=== PATIENT | female | born 2000 | race Caucasian/White ===

== ENCOUNTER → 2020-01-06 11:12 | Outpatient (BNVA) | payer BC, SELFPAY | PROVIDERS: Family Provider Nurse Practitioner Family; PCP Nurse Practitioner Family; Visit Provider Nurse Practitioner Family | DX: K59.09 Other constipation (principal); K62.5 Hemorrhage of anus and rectum | CPT/HCPCS: 80053; 85025 ==

== ENCOUNTER 2020-01-09 08:54 | Outpatient (CLI) | payer BC, SELFPAY ==
--- NOTE | 2020-01-09 10:30 | CT_ITS ---
WS: [id number] CT ABDOMEN AND PELVIS NONCONTRAST HISTORY: rectal bleeding, abdominal pain TECHNIQUE: Imaging performed through the abdomen and pelvis. Coronal and sagittal reformats are submi tted. All CT scans at [facility] use at least one of these dose optimization techniques: automated exposure control; mA and/or kV adjustment per patient size (includes targeted exams where d ose is matched to clinical indication); or iterative reconstruction. DLP: 1078.23 mGy.cm COMPARISON: None available. Lower thorax: Lung bases are clear. No hiatal hernia. Liver: Normal, no mass or intrahepatic dilatation. Gallbladder: Unremarkable. Pancreas: Normal. Spleen: Normal. Adrenal glands: Normal. Right kidney: Normal size with no stones, masses or atrophy. Left kidney: Normal size with no stones, mass or atrophy. Abdominal aorta and IVC are unremarkable. No free fluid, intraperitoneal air or significant lymphadenopathy. GI tract: Normal appendix. Moderate fecal retention throughout the colon. There is an area of mild so ft tissue thickening at the rectosigmoid junction. No adjacent adenopathy or fluid. Abdominal wall: Intact. Pelvis: Normal. Osseous structures: Unremarkable. CT/CT abdomen pelvis wo con [id number] IMPRESSION: 1. Subtle area of mild circumferential mucosal thickening at the rectosigmoid junction. Mild area of colitis or proctitis. Less likely neoplasm due to age of the patient. Sigmoidoscopy would provide additional information. 2. Constipation. 3. Normal appendix. 4. No renal stone or obstruction.
[2020-01-09] MEDS: iohexol 300 mg/mL 50 mL Btl PO (10:33)
== END 2020-01-09 08:55 | disposition home or self-care (01) ==
LOC: RAD 08:57
PROVIDERS: PCP Nurse Practitioner Family; Visit Provider Nurse Practitioner Family
DX: K62.5 Hemorrhage of anus and rectum (principal); R10.9 Unspecified abdominal pain; K59.00 Constipation, unspecified
CPT/HCPCS: 74176

== ENCOUNTER → 2020-01-11 08:08 | Outpatient (BNVA) | payer BC, SELFPAY | PROVIDERS: PCP Nurse Practitioner Family; Visit Provider Nurse Practitioner | DX: K59.09 Other constipation (principal) | CPT/HCPCS: 82272 ==

== ENCOUNTER 2020-02-13 09:40 | Outpatient (CLI) | payer BC, SELFPAY ==
[2020-02-09 12:29] VITALS: BMI 26.4
== END 2020-02-13 09:41 | disposition home or self-care (01) ==
LOC: LAB 12-25 05:24
PROVIDERS: PCP Nurse Practitioner Family; Visit Provider Surgery
DX: K62.5 Hemorrhage of anus and rectum (principal)
CPT/HCPCS: 87635

== ENCOUNTER 2020-02-15 06:22 | Day surgery (SDC) | payer BC, SELFPAY ==
[2020-02-10 13:07] VITALS: BMI 26.4
[2020-02-15 06:36] VITALS: BMI 26.4
[2020-02-15 06:44] VITALS: BP 129/86; PULSE 71; RESP 18; TEMP 36.8
--- NOTE | 2020-02-15 06:49 | W.PM.OPSFHP ---
Same Day Surgery H&P Indication for Procedure/HPI DATE OF PROCEDURE: February 15, 2020 CHIEF COMPLAINT/INDICATIONFOR SURGICAL PROCEDURE: Blood in stool PREOP DIAGNOSIS: Bleeding per rectum PLANNED PROCEDRUE: Operation Date: 02/15/20 07:00 Proposed Procedures p EGD/Colon 56089 30944 K59.09(Not Applicable) - Abe Hurst MD s Colonoscopy(Not Applicable) - Abe Hurst MD This is a pleasant 19 years old young lady presents with history of constipation that has been getting worse and she did encounter a couple of episodes of fresh blood per rectum That she describes it as brisk and stopped on its own,associated with hard stool, during the clinical encounter I did notice multiple bruises on the by lateral lower extremities and left upper extremity the patient reports in the presence of her mom that she had 1 of her goats wrapped around her legs and caused these bruises, also patient reports history of heavy menses, she denies any nausea vomiting fevers or chills. Patient comes today escorted by her mom and undergone previous blood work that not of significance and she does report to me that she had her father with history of colon cancer at the splenic flexure that undergone surgery for. Patient denies history of mucus with the stool and she never had previous endoscopies also she did undergo a CT scan of the abdomen and pelvis that showed; 1. Subtle area of mild circumferential mucosal thickening at the rectosigmoid junction. Mild area of colitis or proctitis. Less likely neoplasm due to age of the patient. Sigmoidoscopy would provide additional information. 2. Constipation. 3. Normal appendix. 4. No renal stone or obstruction. Patient denies any nonintentional weight loss And reports no incidence of previous bruises or bleeding or nonhealing wounds when she was even younger and that was confirmed by mom. Interim history 02/15/2020 Patient comes today and she does report some blood in stool and she had some suprapubic abdominal pain but she attributed it more to her menstruation. She comes today with the plan to perform a diagnostic EGD and colonoscopy. ROS All systems have been reviewed negative except as per the above or per problem list Medications/Allergies* Home Medications Medication Instructions Recorded Confirmed Type calcium polycarbophil [Fiber-Tabs] 1,250 mg PO DAILY 02/09/20 02/10/20 History psyllium husk [Metamucil] 1 tbsp PO DAILY 02/09/20 02/10/20 History triamcinolone acetonide 1 applic TOPICAL BID PRN 02/09/20 02/10/20 History Allergies/Adverse Reactions Allergy/AdvReac Type Severity Reaction Status Date / Time Sulfa (Sulfonamide Allergy Unknown ALGY-Hives Verified 02/15/20 06:50 Antibiotics) insect venom Allergy ADR-Swelling Verified 02/15/20 06:50 of the Eye Pertinent History/Comorbid Conditions* Medical History (Updated 01/10/20 @ 18:08 by Abe Hurst MD) Chronic constipation No pertinent past medical history Surgical History (Updated 12/14/19 @ 16:08 by FABY New) No pertinent past surgical history Family History (Updated 01/09/20 @ 13:42 by Prachi Martínez LPN) Diabetes Grandmother CAD (coronary artery disease) Family/Other Cancer Hypertension Family/Other Denies family history of Anesthesia complication Bleeding disorder Social History Smoking and tobacco status: never smoked Second hand smoke exposure: No Alcohol intake: never Lives independently: No Household members: family Marital status: Single Current occupational status: student Current occupation: [employer] History of recent travel: No Current gender identity: Female Pertinent Exam Findings alert, oriented x 3, clear to auscultation bilaterally, regular rate & rhythm and procedure specific exam findings (Abdominal examination nontender nondistended soft) Recommendations Surgery/Procedure today (Diagnostic EGD and colonoscopy with possible biopsy) Coding Level of Care Code Acute Magisterial District Judge for Jenniffer Hannah
--- NOTE | 2020-02-15 06:51 | ANES.PREANE2 ---
Pre-Anesthetic Assessment Pre-Anesthetic Assessment: Height/Weight: Height 1.85 m Weight 90.718 kg Temp Pulse Resp BP 98.3 F 71 18 129/86 02/15/20 06:44 02/15/20 06:44 02/15/20 06:44 02/15/20 06:44 Preop Diagnosis: Bleeding per rectum Proposed Procedure: Operation Date: 02/15/20 07:00 Proposed Procedures p EGD/Colon 47816 57591 K59.09(Not Applicable) - Abe Hurst MD s Colonoscopy(Not Applicable) - Abe Hurst MD Familial anesthetic complications: None Was Beta Gibran taken within 24 hours: N/A Last intake: Intake Last Liquid Date 02/14/20 Last Liquid Time 22:00 Last Solid Date 02/13/20 Last Solid Time 22:00 Social: Social History: No alcohol and No tobacco Exam: Pre-Anes Outpt Exam: alert, oriented x 3, clear to auscultation bilaterally and regular rate & rhythm Airway: Cervical ROM: WNL MP: 2 Dentition: Full Anesthetic Plan: ASA status: 1 Anesthesia: MAC Risk of > 500 ml blood loss (7ml/kg in children): No PFSH Anesthesia PFSH: Medical History (Updated 01/10/20 @ 18:08 by Abe Hurst MD) Chronic constipation No pertinent past medical history Surgical History No pertinent past surgical history Family History Grandmother Diabetes Family/Other Hypertension CAD (coronary artery disease) Other Cancer Denies family history of Anesthesia complication Bleeding disorder Social History Smoking and tobacco status: never smoked Second hand smoke exposure: No Alcohol intake: never Lives independently: No Household members: family Marital status: Single Current occupational status: student Current occupation: [employer] History of recent travel: No Current gender identity: Female Female Reproductive History: Date of last menstrual period: 01/27/20 Para: 0 Data Anesthesia Cardiac Studies: No Data to Display
[2020-02-15] MEDS: sodium chloride 0.9% 1,000 ML 30 ML IV (07:05)
[2020-02-15 07:14] LABS: OR HCG Qualitative Urine Negative (Negative)
[2020-02-15 07:34] LABS: INR 0.92 (0.8-1.2)
[2020-02-15 07:48] LABS: Thyroid Stimulating Hormone 4.34 uIU/mL (0.27-4.20)
[2020-02-15 07:52] VITALS: BP 124/60; PULSE 86; RESP 16; TEMP 36.4; O2SAT 100
[2020-02-15 08:03] LABS: Erythrocyte Sedimentation Rate 19 mm/hr (0-15)
[2020-02-15 08:06] VITALS: BP 108/53; PULSE 59; RESP 16; O2SAT 100
--- NOTE | 2020-02-15 08:30 | ANE.PACU2 ---
Inpatient post-anesthesia follow up: Airway intact: Yes Vital signs: Temperature 97.6 F Pulse Rate 59 Respiratory Rate 16 Blood Pressure 108/53 Pulse Oximetry 100 Oxygen Delivery Me thod Room Air Oxygen Flow Rate Fraction of Inspir ed Oxygen Hydration adequate: Yes Nausea and vomiting: No Pain level: 1 Mental status: Baseline
[2020-02-15 08:35] LABS: C Reactive Protein 6.9 mg/L (0.0-4.9)
[2020-02-16 07:05] LABS: H. Pylori / CLO Test Negative
== END 2020-02-15 08:25 | disposition home or self-care (01) ==
PROVIDERS: Anesthesiology; PCP Nurse Practitioner Family; Visit Provider Surgery
PROC: 0DJ08ZZ Inspection of Upper Intestinal Tract, Via Natural or Artificial Opening Endoscopic (ICD-10-PCS; CPT 43235; principal; 2020-02-15 07:00)
PROC: 0DJD8ZZ Inspection of Lower Intestinal Tract, Via Natural or Artificial Opening Endoscopic (ICD-10-PCS; CPT 45378; 2020-02-15 07:00)
DX: K62.5 Hemorrhage of anus and rectum (principal); K59.09 Other constipation; Z80.0 Family history of malignant neoplasm of digestive organs; K21.9 Gastro-esophageal reflux disease without esophagitis; K29.70 Gastritis, unspecified, without bleeding
CPT/HCPCS: 12345; 43239; 45378; 84443; 84703; 85610; 85651; 86140; 87077; J2704; J7030

== ENCOUNTER 2020-05-16 08:09 | Outpatient (CLI) | payer BC, SELFPAY ==
--- NOTE | 2020-05-16 08:14 | FL_ITS ---
WS: [id number] SMALL BOWEL FOLLOW-THROUGH HISTORY: K62.5 Hemorrhage of anus and rectum COMPARISON: CT abdomen and pelvis 01/09/2020 FLUOROSCOPY TIME: 0 minutes. TECHNIQUE: Slurry Tank Tender film performed of the abdomen. Parental oral contrast is provided to evaluate the sm all bowel. Sequential imaging is performed. Mild delay in transit of the contrast to the terminal ileum by approximately 2 1/2 hours. No strictur es are identified. There is minimal dilatation of the terminal ileum. There is also some increased s oft tissue thickening around the terminal ileum. No stricture or extravasation or perforation. The ap pendix is not identified. FL/[place] [id number] IMPRESSION: Mild dilatation of the terminal ileum. Mild separation of adjacent bowel loops is just ending increased fat deposition. There is no obstruction.
[2020-05-16 12:11] LABS: INR 0.99 (0.8-1.2)
[2020-05-16 12:25] LABS: Alanine Aminotransferase 8 U/L (0-33); Alkaline Phosphatase 67 IU/L (35-105); Aspartate Amino Transferase 11 U/L (0-32); C Reactive Protein 12.9 mg/L (0.0-4.9); Globulin 2.9 g/dL (1.3-4.6); Thyroid Stimulating Hormone 1.97 uIU/mL (0.27-4.20); Total Bilirubin 0.2 mg/dL (0.15-1.2); Total Protein 6.9 g/dL (6.6-8.7)
[2020-05-16 13:12] LABS: Erythrocyte Sedimentation Rate 21 mm/hr (0-15)
== END 2020-05-16 08:10 | disposition home or self-care (01) ==
LOC: RAD 08:11
PROVIDERS: PCP Nurse Practitioner Family; Visit Provider Surgery
DX: K62.5 Hemorrhage of anus and rectum (principal); R19.7 Diarrhea, unspecified; K59.09 Other constipation
CPT/HCPCS: 36415; 74250; 80076; 84443; 85610; 85651; 86140

== ENCOUNTER → 2020-10-05 12:14 | Outpatient (BNVA) | payer OTHER, SELFPAY | PROVIDERS: PCP Nurse Practitioner Family; Visit Provider Nurse Practitioner Family | DX: M25.562 Pain in left knee (principal); W19.XXXA Unspecified fall, initial encounter; Z68.27 Body mass index [BMI] 27.0-27.9, adult | CPT/HCPCS: 73562 ==

== ENCOUNTER → 2021-04-16 15:26 | Outpatient (BNVA) | payer OTHER, SELFPAY | PROVIDERS: PCP Nurse Practitioner Family; Visit Provider Nurse Practitioner Family | DX: R53.83 Other fatigue (principal); F41.1 Generalized anxiety disorder | CPT/HCPCS: 80053; 82306; 84443; 85025 ==

== ENCOUNTER → 2021-05-22 10:15 | Outpatient (BNVA) | payer OTHER, SELFPAY | PROVIDERS: PCP Nurse Practitioner Family; Visit Provider Nurse Practitioner Family | DX: R30.0 Dysuria (principal); D64.9 Anemia, unspecified | CPT/HCPCS: 81000; 83540; 87077; 87086; 87184 ==

== ENCOUNTER → 2022-11-03 10:12 | Outpatient (BNVA) | payer MEDICAID, SELFPAY | PROVIDERS: Visit Provider Nurse Practitioner Family | DX: R59.0 Localized enlarged lymph nodes (principal); R53.83 Other fatigue; R59.9 Enlarged lymph nodes, unspecified; R09.89 Other specified symptoms and signs involving the circulatory and respiratory systems | CPT/HCPCS: 80053; 84443; 85025; 86308 ==

== ENCOUNTER → 2022-11-10 09:44 | Outpatient (BNVA) | payer OTHER, MEDICAID, SELFPAY | PROVIDERS: Visit Provider Nurse Practitioner Family | DX: D64.9 Anemia, unspecified (principal); R53.83 Other fatigue | CPT/HCPCS: 82728; 83550 ==

== ENCOUNTER → 2023-08-24 10:06 | Outpatient (BNVA) | payer OTHER, MEDICAID, SELFPAY | PROVIDERS: PCP Nurse Practitioner; Visit Provider Nurse Practitioner | DX: E61.1 Iron deficiency (principal); E55.9 Vitamin D deficiency, unspecified; Z13.6 Encounter for screening for cardiovascular disorders | CPT/HCPCS: 80053; 80061; 82306; 82607; 83540; 84443; 85025 ==

== ENCOUNTER 2023-11-23 21:48 | Emergency (ER) | payer OTHER, SELFPAY ==
[2023-11-23 21:52] VITALS: BP 132/77; PULSE 106; RESP 16; TEMP 37.4; O2SAT 98
[2023-11-23 23:30] VITALS: BP 116/56; PULSE 97; RESP 19; O2SAT 96
--- NOTE | 2023-11-23 23:34 | ED_ITS ---
HPI - Animal Bite 2 General: Chief Complaint: Animal Bite Stated Complaint: Bit By Cat\Finger Time Seen by Provider: 11/23/23 23:15 Source: patient Mode of arrival: ambulatory Limitations: no limitations History of Present Illness: Patient is a 23-year-old female presenting to the emergency department complaining of cat bite to right index finger last Thursday. Initially she states that the pain is gone away however it started to swell, was seen today by primary care where she was prescribed Augmentin. However she states that now she is starting to have body aches, fever, chills, and nausea and states that the pain to her right finger is worsening. She also notes that there has been some red streaking extending proximally. She notes some lymphadenopathy to the right cervical region and right axillary region as well. Status of the cat was that it was a barn cat, and while it was not displaying any unusual activity or behavior, is unvaccinated. Patient's tetanus is not up-to-date. No other concerning historical factors or symptoms to report at this time. complaint: animal bite Onset (ago): day(s) Animal: cat Description of animal: wild animal Mechanism: bite Location - Extremities: Right: hand Associated symptoms: Reports chills and fever(s); Deny headache(s) Review of Systems 2 General: Reports: 10 or more systems reviewed and unremarkable except in HPI and below Const: Reports: fever(s), chills and body aches; Denies: fatigue Eyes: Denies: change in vision ENMT: Denies: throat pain, ear or mastoid pain or nasal discharge Card: Denies: chest pain, palpitations, swelling of feet/ankles or lightheadedness Resp: Denies: dyspnea, productive cough or wheezing GI: Reports: nausea; Denies: abdominal pain, vomiting, diarrhea or constipation : Denies: flank pain, difficulty voiding, dysuria or urinary frequency Musc: Reports: extremity pain; Denies: neck pain, back pain or joint pain Skin/Breast: Reports: new lesions (Cat bite); Denies: rash Neuro: Denies: headache(s), numbness in extremities or weakness in extremities Nik/Lymph: Reports: enlarged lymph nodes PFSH ED 2 PFSH: Medical History Rectal Hemorrhage Chronic constipation Surgical History History of July 31, 2022 Family History Grandmother Diabetes Family/Other Hypertension CAD (coronary artery disease) Other Cancer Denies family history of Anesthesia complication Bleeding disorder Social History Smoking and tobacco/nicotine status: never used tobacco/nicotine Second hand smoke exposure: No Alcohol intake: never Substance/Drug Use: never Adopted: No Caregiver/support person: No Lives independently: No Household members: family Housing: House Marital status: Single Number of children: 0 Highest education level completed: High School Graduate service: No Current occupational status: student Current occupation: [employer] Current occupational exposures/hazards: No Do you think of yourself as: Straight/Heterosexual Current gender identity: Female Female Reproductive History: Para: 1 Physical Exam 2 Const: COMMON NORMALS: no acute distress, patient oriented x3, no limitations, healthy appearing, alert and well nourished HENMT: COMMON NORMALS: normocephalic and atraumatic HEAD & SCALP: n ormocephalic and atraumatic Eye: COMMON NORMALS: Equal, round and reactive pupils present, EOMs intact bilaterally and conjunctivae normal CONJUNCTIVA: Yes conjunctivae normal P UPIL: Yes Equal, round and reactive pupils present Neck/C-Spine: COMMON NORMALS: full ROM, no lymphadenopathy, supple and no meningeal signs Lymph: LYMPHATIC: no lymphadenopathy noted Resp: COMMON NORMALS: normal respiratory effort, No use of accessory muscles and clear to auscultation bilaterally AUSCULTATION: clear to auscultation bilaterally Cardio: COMMON NORMALS: regular rate and regular rhythm RATE: regular rate RHYTHM: regular rhythm GI: COMMON NORMALS: Normal to inspection, nondistended, normoactive bowel sounds present and non-tender Extremity: COMMON NORMALS: capillary refill normal, no joint enlargement and no clubbing, cyanosis or edema NARRATIVE EXTREMITY EXAM: Mild swelling noted to patient's right index finger. Tender to palpation and somewhat limitation of range of motion with flexion extension of the right index finger. Neuro: COMMON NORMALS: patient oriented x3, moves all extremities, no focal motor deficits and no sensory deficits noted SENSORIUM/ORIENTATION: Yes alert MENINGEAL SIGNS: Yes no meningeal signs Skin: NARRATIVE SKIN EXAM: Pinpoint lesion noted to dorsal aspect of right index finger, no active bleeding or drainage. Course 2 Vital Signs: Vital signs: Vital Signs Temperature 99.3 F 11/23/23 21:52 Pulse Rate 101 H 11/24/23 01:30 Respiratory Rate 18 11/24/23 01:30 Blood Pressure 101/48 11/24/23 01:30 Pulse Oximetry 92 11/24/23 01:30 Oxygen Delivery Me thod Room Air 11/24/23 01:30 MDM - Animal Bite Medical Decision Making Patient arrives after receiving cat bite from unvaccinated, wild kitten last Thursday. She was started on Augmentin today, however was concerned when she started develop nausea vomiting with fevers at home. She is afebrile on arrival to the emergency department, and rest of her vitals have been normal. Physical examination overall normal aside from noting the pinpoint Bite lesion to her right index finger. There was no significant red streaking noted at this time, there was some swelling noted to her finger. Her lab work was all unremarkable and did not demonstrate any signs of systemic infection. She is started on IV antibiotics and instructed to continue her Augmentin at home. After further discussion, we agreed to start rabies prophylactic vaccination series today, of which she will receive immunoglobulin and vaccine here and return for further vaccinations. Strict return precautions were given. She states that she feels better at this time and is ready to go home. Lab Data 11/23/23 23:51 11/23/23 23:51 Laboratory Results WBC 10.25 10^3/uL (3.29-11.43) 11/23/23 23:51 RBC 5.33 10^6/uL (3.85-5.65) 11/23/23 23:51 Hgb 13.10 g/dL (11.27-16.99) 11/23/23 23:51 Hct 40.9 % (36-47) 11/23/23 23:51 MCV 76.7 fl (85-98) L 11/23/23 23:51 MCH 24.6 pg (27-33) L 11/23/23 23: MCHC 32.0 g/dL (30-55) 11/23/23 23:51 RDW 15.0 % (12.1-15.1) 11/23/23 23:51 Plt Count 191 10^3/cmm (157-399) 11/23/23 23:51 MPV 9.8 fL (7.4-10.4) 11/23/23 23:51 Neut % (Auto) 82.5 % 11/23/23 23:51 Lymph % (Auto) 10.3 % 11/23/23 23:51 Tompkins % (Auto) 6.0 % 11/23/23 23:51 Eos % (Auto) 0.5 % 11/23/23 23:51 Baso % (Auto) 0.4 % 11/23/23 23:51 Neut # (Auto) 8.45 10^3/uL (1.8-7.7) H 11/23/23 23:51 Lymph # (Auto) 1.1 10^3/uL (0.8-4.8) 11/23/23 23:51 Tompkins # (Auto) 0.6 10^3/uL (0.2-0.9) 11/23/23 23:51 Eos # (Auto) 0.1 10^3/uL (0.0-0.8) 11/23/23 23:51 Baso # (Auto) 0.0 10^3/uL (0.0-0.1) 11/23/23 23:51 Nucleated RBC % (auto) 0 % 11/23/23 23:51 Nucleated RBCs # 0.0 /100WBC 11/23/23 23:51 Sodium 138 mmol/L (136-145) 11/23/23 23:51 Potassium 4.1 mmol/L (3.5-5.1) 11/23/23 23:51 Chloride 102 mmol/L (98-107) 11/23/23 23:51 Carbon Dioxide 23 mmol/L (22-29) 11/23/23 23:51 Anion Gap 17.1 (5-19) 11/23/23 23:51 BUN 15 mg/dL (6-20) 11/23/23 23:51 Creatinine 0.8 mg/dL (0.5-0.9) 11/23/23 23:51 GFR Calculation 88.9 mL/min (90-130) L 11/23/23 23:51 Glucose 104 mg/dL (65-115) 11/23/23 23:51 Calculated Osmolality 287 mOsm/kg (285-295) 11/23/23 23:51 Lactic Acid 0.8 mmol/L (0.5-2.2) 11/23/23 23:51 Calcium 9.7 mg/dL (8.5-10.5) 11/23/23 23:51 Total Bilirubin 0.4 mg/dL (0.15-1.2) 11/23/23 23:51 AST 12 U/L (0-32) 11/23/23 23:51 ALT 11 U/L (0-33) 11/23/23 23:51 Alkaline Phosphatase 90 U/L (35-105) 11/23/23 23:51 C-Reactive Protein 27.1 mg/L (0.0-4.9) H 11/23/23 23:51 Total Protein 7.2 g/dL (6.6-8.7) 11/23/23 23:51 Albumin 4.5 g/dL (3.5-5.2) 11/23/23 23:51 Globulin 2.7 g/dL (1.3-4.6) 11/23/23 23:51 Procalcitonin 0.05 ng/mL (0-0.5) 11/23/23 23:51 No radiology studies performed this visit Discharge Plan Discharge Patient Disposition: Home Clinical Impression: Cat bite Qualifiers: Encounter type: initial encounter Qualified Code(s): W55.01XA - Bitten by cat, initial encounter Condition: Stable Prescriptions: No Action amoxicillin-pot clavulanate 875-125 mg tablet 1 tab PO BID 10 Days Qty: 20 0RF sertraline 100 mg tablet 100 mg PO DAILY Qty: 30 5RF Discharge Orders: Discharge ED (Routine); Ordered 11/24/23 Ordered By: Miguel Clemente Referrals: Hung Baker, RESERVOIR ENGINEERING ADVISOR-C [Primary Care Provider] - Discharge Diet: Usual diet Discharge Activity: Increase activity as tolerated Patient Instructions: Animal Bite (ED), Rabies (ED) Activity Restrictions/Additional Instructions: Please return for subsequent rabies vaccination as instructed. Continue taking your Augmentin at home. Tylenol or ibuprofen for pain or fevers. If you have any new or concerning symptoms or signs of systemic illness, please return for reevaluation. Your tetanus was updated today 11/24/2023. Coding Level of Care Code ED Barrel Plater for Jenniffer Hannah
[2023-11-23 23:57] LABS: Basophils % 0.4 %; Eosinophils # 0.1 10^3/uL (0.0-0.8); Eosinophils % 0.5 %; Hematocrit 40.9 % (36-47); Lymphocytes # 1.1 10^3/uL (0.8-4.8); Lymphocytes % 10.3 %; Mean Corpuscular Hemoglobin 24.6 pg (27-33); Mean Corpuscular Volume 76.7 fl (85-98); Mean Platelet Volume 9.8 fL (7.4-10.4); Monocytes # 0.6 10^3/uL (0.2-0.9); Neutrophils # 8.45 10^3/uL (1.8-7.7); Neutrophils % 82.5 %; Nucleated Red Blood Cells % 0 %; Platelet Count 191 10^3/cmm (157-399); Red Blood Count 5.33 10^6/uL (3.85-5.65); White Blood Count 10.25 10^3/uL (3.29-11.43)
[2023-11-24] MEDS: sodium chloride 0.9% 1,000 ML 999 ML IV (00:10)
[2023-11-24] MEDS: ondansetron 2 mg/ML SDV 2 mL 4 MG IVP (00:11)
[2023-11-24] MEDS: ampicillin-sulbactam 3 GM in sodium chloride 0.9% (plus) 50 ML IV (00:13)
[2023-11-24 00:16] LABS: Alanine Aminotransferase 11 U/L (0-33); Albumin Level 4.5 g/dL (3.5-5.2); Alkaline Phosphatase 90 U/L (35-105); Anion Gap 17.1 (5-19); Aspartate Amino Transferase 12 U/L (0-32); Blood Urea Nitrogen 15 mg/dL (6-20); C Reactive Protein 27.1 mg/L (0.0-4.9); Calcium 9.7 mg/dL (8.5-10.5); Carbon Dioxide 23 mmol/L (22-29); Chloride 102 mmol/L (98-107); Creatinine Clr Calc Pharmacy 152.6661; Globulin 2.7 g/dL (1.3-4.6); Glomerular Filtration Rate 88.9 mL/min (90-130); Glucose 104 mg/dL (65-115); Osmolality Calculated 287 mOsm/kg (285-295); Potassium 4.1 mmol/L (3.5-5.1); Sodium 138 mmol/L (136-145); Total Bilirubin 0.4 mg/dL (0.15-1.2); Total Protein 7.2 g/dL (6.6-8.7)
[2023-11-24 00:17] LABS: Lactic Sepsis W/Reflex 0.8 mmol/L (0.5-2.2)
[2023-11-24 00:23] LABS: Procalcitonin 0.05 ng/mL (0-0.5)
[2023-11-24] MEDS: tetanus-dipt-pertussis 0.5 mL SDV IM (00:25)
[2023-11-24 00:30] VITALS: BP 112/47; PULSE 100; RESP 18; O2SAT 96
[2023-11-24] MEDS: ketorolac 60 mg/2 mL INJ 30 MG IVP (00:37)
[2023-11-24 01:30] VITALS: BP 101/48; PULSE 101; RESP 18; O2SAT 92
[2023-11-24] MEDS: rabies vaccine 2.5 unit SDV IM (01:40)
[2023-11-24] MEDS: rabies IG 300 unit/mL SDV 1 mL 2160 UNIT IM (01:42)
== END 2023-11-24 02:16 | disposition home or self-care (01) ==
PROVIDERS: Emergency Medicine; Emergency Provider Physician Assistant; PCP Nurse Practitioner
DX: S61.250A Open bite of right index finger without damage to nail, initial encounter (principal); W55.01XA Bitten by cat, initial encounter; Z23 Encounter for immunization; Z20.3 Contact with and (suspected) exposure to rabies; Z29.14 Encounter for prophylactic rabies immune globulin
CPT/HCPCS: 80053; 83605; 84145; 85025; 86140; 90375; 90471; 90675; 90715; 96365; 96372; 96375; 99284; J0295; J1885; J2405; J7030

== ENCOUNTER 2023-11-25 22:42 | Emergency (ER) | payer OTHER, SELFPAY ==
[2023-11-25 22:48] VITALS: BP 153/89; PULSE 96; RESP 14; TEMP 37.3; O2SAT 100; BMI 32.3
--- NOTE | 2023-11-25 22:49 | ED_ITS ---
Documented by User: FABY Baldwin 11/28/23 13:18 HPI - Animal Bite 2 General: Chief Complaint: Headache Stated Complaint: headache cant shake fever n/v pain under arm Time Seen by Provider: 11/25/23 22:45 History of Present Illness: 23-year-old female comes in today for co mplaints of headache, fever, and pain under the right axilla. Patient was bit by a barn cat last Thursday but waited to be seen until this Thursday when she was started on Augmentin. Patient was also updated of her tetanus and started on the rabies vaccine series. Patient reports that she has had a persistent headache since then. Patient appears nontoxic. Patient has some redness and mild swelling to the PIP joint of the right index finger where the cat bit her. Review of Systems 2 General: Reports: 10 or more systems reviewed and unremarkable except in HPI and below Musc: Reports: extremity pain (Right index finger) PFSH ED 2 PFSH: Medical History Rectal Hemorrhage Chronic constipation Surgical History History of July 31, 2022 Family History Grandmother Diabetes Family/Other Hypertension CAD (coronary artery disease) Other Cancer Denies family history of Anesthesia complication Bleeding disorder Social History Smoking and tobacco/nicotine status: never used tobacco/nicotine Second hand smoke exposure: No Alcohol intake: never Substance/Drug Use: never Adopted: No Caregiver/support person: No Lives independently: No Household members: family Housing: House Marital status: Single Number of children: 0 Highest education level completed: High School Graduate service: No Current occupational status: student Current occupation: [email or web address] Current occupational exposures/hazards: No Do you think of yourself as: Straight/Heterosexual Current gender identity: Female Female Reproductive History: Para: 1 Physical Exam 2 Const: COMMON NORMALS: alert HENMT: COMMON NORMALS: normocephalic HEAD & SCALP: normocephalic Neck/C-Spine: COMMON NORMALS: full ROM Chest: COMMONS NORMALS: normal inspection of the chest Resp: COMMON NORMALS: normal respiratory effort and clear to auscultation bilaterally AUSCULTATION: clear to auscultation bilaterally Cardio: COMMON NORMALS: regular rate RATE: regular rate GI: COMMON NORMALS: Soft to palpation PALPATION: Yes Soft to palpation Back/Pelvis: COMMON NORMALS: thoracic and lumbar spine normal to inspection Extremity: COMMON NORMALS: normal to inspection Neuro: SENSORIUM/ORIENTATION: Yes alert Skin: COMMON NORMALS: turgor normal GENERAL SKIN EXAM: turgor normal Course 2 Vital Signs: Vital signs: Vital Signs Temperature 99.4 F 11/26/23 04:11 Pulse Rate 89 11/26/23 04:11 Respiratory Rate 14 11/26/23 04:11 Blood Pressure 115/75 11/26/23 04:11 Pulse Oximetry 99 11/26/23 04:11 Oxygen Delivery Me thod Room Air 11/26/23 04:11 MDM - Animal Bite Medical Decision Making 23-year-old female comes in today for complaints of injury to the right index finger. On exam patient has some mild swelling to the PIP joint area of the right index finger. Cap refill is intact distally. Sensation is intact distally. Patient has decreased range of motion of the finger due to some mild swelling. No lymphangitis is noted. Patient does report palpable lymph nodes to the right axilla. Vital signs are normal with mild temperature of 99.2. Differential diagnosis includes not limited to tenosynovitis, malingering, sepsis, wound infection. 0015, reviewed patient with Dr. Avery, attending ER physician. He agreed to assume care of my patient at the end of my shift. Laboratory values were unremarkable except for CRP being 218. We are awaiting CT report. Patient did report some improvement of headache. We will plan for discharge if CT is unremarkable. Otherwise, patient may need referral to orthopedic for incision and drainage. Lab Data 11/25/23 22:55 11/25/23 22:[address] 11/25/23 22:52 IMPRESSION: 1. There is a fluid collection dorsal to the 2nd PIP joint that appears to communicate with the joint space concerning for abscess measuring 1.4 x 1.0 x 0.7 cm. 2. There is concern over the integrity of the 2nd extensor tendon immediately dorsal to the 2nd PIP joint where there is a 2 mm gap in the lateral aspect of the tendon or lateral bundle fiber disruption immediately dorsal to the distal 2nd proximal phalanx. This is best seen on series 3, image 55. 3. There is a 2nd PIP joint effusion resulting in marked volar displacement of the 2nd flexor tendon immediately anterior to the 2nd PIP joint. This suggest effusion/septic joint. 4. No acute bony fracture or dislocation. No bony puncture is identified. No periosteal reaction or osteomyelitis. Laboratory Results WBC 6.35 10^3/uL (3.29-11.43) 11/25/23 22:55 RBC 5.42 10^6/uL (3.85-5.65) 11/25/23 22:55 Hgb 13.40 g/dL (11.27-16.99) 11/25/23 22:55 Hct 41.6 % (36-47) 11/25/23 22:55 MCV 76.8 fl (85-98) L 11/25/23 22:55 MCH 24.7 pg (27-33) L 11/25/23 22:55 MCHC 32.2 g/dL (30-55) 11/25/23 22:55 RDW 15.5 % (12.1-15.1) H 11/25/23 22:55 Plt Count 161 10^3/cmm (157-399) 11/25/23 22:55 MPV 10.0 fL (7.4-10.4) 11/25/23 22:55 Neut % (Auto) 71.7 % 11/25/23 22:55 Lymph % (Auto) 23.1 % 11/25/23 22:55 [place] % (Auto) 4.1 % 11/25/23 22:55 Eos % (Auto) 0.3 % 11/25/23 22:55 Baso % (Auto) 0.5 % 11/25/23 22:55 Neut # (Auto) 4.55 10^3/uL (1.8-7.7) 11/25/23 22:55 Lymph # (Auto) 1.5 10^3/uL (0.8-4.8) 11/25/23 22:55 [place] # (Auto) 0.3 10^3/uL (0.2-0.9) 11/25/23 22:55 Eos # (Auto) 0.0 10^3/uL (0.0-0.8) 11/25/23 22:55 Baso # (Auto) 0.0 10^3/uL (0.0-0.1) 11/25/23 22:55 Nucleated RBC % (auto) 0 % 11/25/23 22:55 Nucleated RBCs # 0.0 /100WBC 11/25/23 22:55 ESR 12 mm/hr (0-15) 11/25/23 22:55 Sodium 137 mmol/L (136-145) 11/25/23 22:55 Potassium 3.8 mmol/L (3.5-5.1) 11/25/23 22:55 Chloride 101 mmol/L (98-107) 11/25/23 22:55 Carbon Dioxide 22 mmol/L (22-29) 11/25/23 22:55 Anion Gap 17.8 (5-19) 11/25/23 22:55 BUN 7 mg/dL (6-20) 11/25/23 22:55 Creatinine 0.7 mg/dL (0.5-0.9) 11/25/23 22:55 GFR Calculation 103.7 mL/min (90-130) 11/25/23 22:55 Glucose 95 mg/dL (65-115) 11/25/23 22:55 Calculated Osmolality 282 mOsm/kg (285-295) L 11/25/23 22:55 Lactic Acid 0.6 mmol/L (0.5-2.2) 11/25/23 22:55 Calcium 9.1 mg/dL (8.5-10.5) 11/25/23 22:55 Total Bilirubin 0.4 mg/dL (0.15-1.2) 11/25/23 22:55 AST 16 U/L (0-32) 11/25/23 22:55 ALT 15 U/L (0-33) 11/25/23 22:55 Alkaline Phosphatase 99 U/L (35-105) 11/25/23 22:55 C-Reactive Protein 218.4 mg/L (0.0-4.9) H 11/25/23 22:55 Total Protein 7.6 g/dL (6.6-8.7) 11/25/23 22:55 Albumin 4.3 g/dL (3.5-5.2) 11/25/23 22:55 Globulin 3.3 g/dL (1.3-4.6) 11/25/23 22:55 HCG, Qual Negative (Negative) 11/25/23 22:55 Discharge Plan Discharge Patient Disposition: Xfer Short-Term Hosp Clinical Impression: Septic joint Qualifiers: Septic arthritis location: hand Septic arthritis organism: due to unspecified organism Laterality: right Qualified Code(s): M00.9 - Pyogenic arthritis, unspecified Condition: Stable Referrals: Hung Baker, THRASHER FEEDER-C [Primary Care Provider] - Coding Level of Care Code ED Women'S Soccer Coach for Chg Fwd Documented by User: Oscar Avery DO 11/26/23 03:15 HPI - Animal Bite 2 General: Chief Complaint: Headache Stated Complaint: headache cant shake fever n/v pain under arm Time Seen by Provider: 11/25/23 22:45 PFSH ED 2 PFSH: Medical History Rectal Hemorrhage Chronic constipation Surgical History History of July 31, 2022 Family History Grandmother Diabetes Family/Other Hypertension CAD (coronary artery disease) Other Cancer Denies family history of Anesthesia complication Bleeding disorder Social History Smoking and tobacco/nicotine status: never used tobacco/nicotine Second hand smoke exposure: No Alcohol intake: never Substance/Drug Use: never Adopted: No Caregiver/support person: No Lives independently: No Household members: family Housing: House Marital status: Single Number of children: 0 Highest education level completed: High School Graduate service: No Current occupational status: student Current occupation: [email or web address] Current occupational exposures/hazards: No Do you think of yourself as: Straight/Heterosexual Current gender identity: Female Course 2 Vital Signs: Vital signs: Vital Signs Temperature 99.4 F 11/26/23 04:11 Pulse Rate 89 11/26/23 04:11 Respiratory Rate 14 11/26/23 04:11 Blood Pressure 115/75 11/26/23 04:11 Pulse Oximetry 99 11/26/23 04:11 Oxygen Delivery Me thod Room Air 11/26/23 04:11 MDM - Animal Bite Medical Decision Making 23-year-old female comes in today for complaints of injury to the right index finger. On exam patient has some mild swelling to the PIP joint area of the right index finger. Cap refill is intact distally. Sensation is intact distally. Patient has decreased range of motion of the finger due to some mild swelling. No lymphangitis is noted. Patient does report palpable lymph nodes to the right axilla. Vital signs are normal with mild temperature of 99.2. Differential diagnosis includes not limited to tenosynovitis, malingering, sepsis, wound infection. 0015, reviewed patient with Dr. Avery, attending ER physician. He agreed to assume care of my patient at the end of my shift. Laboratory values were unremarkable except for CRP being 218. We are awaiting CT report. Patient did report some improvement of headache. We will plan for discharge if CT is unremarkable. Otherwise, patient may need referral to orthopedic for incision and drainage. CT scan results showed probable septic joint with abscess and possible tendon disruption, hand surgeon at [facility] was consulted he reviewed the images and discussed this patient with myself. If there is a bed available at [facility] he will accept the patient in transfer take her to the operating room. He suggested no antibiotics at this time and keep the patient NPO. Dr. Bryant hospitalist called back and accepted the patient. Lab Data 11/25/23 22:55 11/25/23 22:[address] 11/25/23 22:52 IMPRESSION: 1. There is a fluid collection dorsal to the 2nd PIP joint that appears to communicate with the joint space concerning for abscess measuring 1.4 x 1.0 x 0.7 cm. 2. There is concern over the integrity of the 2nd extensor tendon immediately dorsal to the 2nd PIP joint where there is a 2 mm gap in the lateral aspect of the tendon or lateral bundle fiber disruption immediately dorsal to the distal 2nd proximal phalanx. This is best seen on series 3, image 55. 3. There is a 2nd PIP joint effusion resulting in marked volar displacement of the 2nd flexor tendon immediately anterior to the 2nd PIP joint. This suggest effusion/septic joint. 4. No acute bony fracture or dislocation. No bony puncture is identified. No periosteal reaction or osteomyelitis. Laboratory Results WBC 6.35 10^3/uL (3.29-11.43) 11/25/23 22:55 RBC 5.42 10^6/uL (3.85-5.65) 11/25/23 22:55 Hgb 13.40 g/dL (11.27-16.99) 11/25/23 22:55 Hct 41.6 % (36-47) 11/25/23 22:55 MCV 76.8 fl (85-98) L 11/25/23 22:55 MCH 24.7 pg (27-33) L 11/25/23 22:55 MCHC 32.2 g/dL (30-55) 11/25/23 22:55 RDW 15.5 % (12.1-15.1) H 11/25/23 22:55 Plt Count 161 10^3/cmm (157-399) 11/25/23 22:55 MPV 10.0 fL (7.4-10.4) 11/25/23 22:55 Neut % (Auto) 71.7 % 11/25/23 22:55 Lymph % (Auto) 23.1 % 11/25/23 22:55 [place] % (Auto) 4.1 % 11/25/23 22:55 Eos % (Auto) 0.3 % 11/25/23 22:55 Baso % (Auto) 0.5 % 11/25/23 22:55 Neut # (Auto) 4.55 10^3/uL (1.8-7.7) 11/25/23 22:55 Lymph # (Auto) 1.5 10^3/uL (0.8-4.8) 11/25/23 22:55 [place] # (Auto) 0.3 10^3/uL (0.2-0.9) 11/25/23 22:55 Eos # (Auto) 0.0 10^3/uL (0.0-0.8) 11/25/23 22:55 Baso # (Auto) 0.0 10^3/uL (0.0-0.1) 11/25/23 22:55 Nucleated RBC % (auto) 0 % 11/25/23 22:55 Nucleated RBCs # 0.0 /100WBC 11/25/23 22:55 ESR 12 mm/hr (0-15) 11/25/23 22:55 Sodium 137 mmol/L (136-145) 11/25/23 22:55 Potassium 3.8 mmol/L (3.5-5.1) 11/25/23 22:55 Chloride 101 mmol/L (98-107) 11/25/23 22:55 Carbon Dioxide 22 mmol/L (22-29) 11/25/23 22:55 Anion Gap 17.8 (5-19) 11/25/23 22:55 BUN 7 mg/dL (6-20) 11/25/23 22:55 Creatinine 0.7 mg/dL (0.5-0.9) 11/25/23 22:55 GFR Calculation 103.7 mL/min (90-130) 11/25/23 22:55 Glucose 95 mg/dL (65-115) 11/25/23 22:55 Calculated Osmolality 282 mOsm/kg (285-295) L 11/25/23 22:55 Lactic Acid 0.6 mmol/L (0.5-2.2) 11/25/23 22:55 Calcium 9.1 mg/dL (8.5-10.5) 11/25/23 22:55 Total Bilirubin 0.4 mg/dL (0.15-1.2) 11/25/23 22:55 AST 16 U/L (0-32) 11/25/23 22:55 ALT 15 U/L (0-33) 11/25/23 22:55 Alkaline Phosphatase 99 U/L (35-105) 11/25/23 22:55 C-Reactive Protein 218.4 mg/L (0.0-4.9) H 11/25/23 22:55 Total Protein 7.6 g/dL (6.6-8.7) 11/25/23 22:55 Albumin 4.3 g/dL (3.5-5.2) 11/25/23 22:55 Globulin 3.3 g/dL (1.3-4.6) 11/25/23 22:55 HCG, Qual Negative (Negative) 11/25/23 22:55 All radiology interpretation(s) finalized by discharge Discharge Plan Discharge Patient Disposition: Xfer Short-Term Hosp Clinical Impression: Septic joint Qualifiers: Septic arthritis location: hand Septic arthritis organism: due to unspecified organism Laterality: right Qualified Code(s): M00.9 - Pyogenic arthritis, unspecified Condition: Stable Referrals: Hung Baker, THRASHER FEEDER-C [Primary Care Provider] - Coding Level of Care Code ED Women'S Soccer Coach for Jenniffer Hannah
--- NOTE | 2023-11-25 22:52 | CTR_ITS ---
PROCEDURE INFORMATION: Exam: CT Right Upper Extremity With Contrast, Hand Exam date and time: 11/25/2023 11:06 PM Age: 23 years old Clinical indication: Injury or trauma; Other: Bit by cat; Swelling (edema); Hand; Right; Additional info: Animal bite index finger TECHNIQUE: Imaging protocol: Computed tomography of the right upper extremity with contrast. Exam focused on the hand. Radiation optimization: All CT scans at this facility use at least one of these dose optimization techniques: automated exposure control; mA and/or kV adjustment per patient size (includes targeted exams where dose is matched to clinical indication); or iterative reconstruction. Contrast material: OMNI 350; Contrast volume: 100 ml; Contrast route: INTRAVENOUS (IV); COMPARISON: No relevant prior studies available. RADIATION DOSE METRICS: Total DLP (mGy-cm): 323 FINDINGS: Bones/joints: There is a fluid collection dorsal to the 2nd PIP joint that appears to communicate with the joint space concerning for abscess measuring 1.4 x 1.0 x 0.7 cm. The communication of the fluid collection with the joint is best appreciated by a small fluid-filled track dissecting from the dorsal fluid collection directly into the posterior 2nd PIP joint on series 8, image 19. There is concern over the integrity of the 2nd extensor tendon immediately dorsal to the 2nd PIP joint where there is a 2 mm gap in the lateral aspect of the tendon or lateral bundle fiber disruption immediately dorsal to the distal 2nd proximal phalanx. This is best seen on series 3, image 55. There is a 2nd PIP joint effusion resulting in marked volar displacement of the 2nd flexor tendon immediately anterior to the 2nd PIP joint. No acute bony fracture or dislocation. No bony puncture is identified. Soft tissues: There is abundant soft tissue edema 2nd finger especially immediately dorsal to the PIP joint. The remainder of the visualized hand and wrist are intact. Other findings: No foreign body. CT/CT hand RT w con [id number] IMPRESSION: 1. There is a fluid collection dorsal to the 2nd PIP joint that appears to communicate with the joint space concerning for abscess measuring 1.4 x 1.0 x 0.7 cm. 2. There is concern over the integrity of the 2nd extensor tendon immediately dorsal to the 2nd PIP joint where there is a 2 mm gap in the lateral aspect of the tendon or lateral bundle fiber disruption immediately dorsal to the distal 2nd proximal phalanx. This is best seen on series 3, image 55. 3. There is a 2nd PIP joint effusion resulting in marked volar displacement of the 2nd flexor tendon immediately anterior to the 2nd PIP joint. This suggest effusion/septic joint. 4. No acute bony fracture or dislocation. No bony puncture is identified. No periosteal reaction or osteomyelitis.
[2023-11-25] MEDS: sodium chloride 0.9% 1,000 ML 999 ML IV (22:59)
[2023-11-25] MEDS: ketorolac 30 mg/mL INJ 15 MG IVP (23:00)
[2023-11-25] MEDS: diphenhydrAMINE 50 mg/mL SDV 1mL 25 MG IVP (23:01)
[2023-11-25] MEDS: metoclopramide 5 mg/mL SDV 2 mL 10 MG IVP (23:01)
[2023-11-25 23:09] LABS: Erythrocyte Sedimentation Rate 12 mm/hr (0-15)
[2023-11-25] MEDS: iohexol 350 mg/mL 500 mL Btl (per mL) IV (23:10)
[2023-11-25 23:11] LABS: Basophils % 0.5 %; Eosinophils % 0.3 %; Hematocrit 41.6 % (36-47); Lymphocytes # 1.5 10^3/uL (0.8-4.8); Lymphocytes % 23.1 %; Mean Corpuscular HGB Conc 32.2 g/dL (30-55); Mean Corpuscular Hemoglobin 24.7 pg (27-33); Mean Corpuscular Volume 76.8 fl (85-98); Monocytes # 0.3 10^3/uL (0.2-0.9); Monocytes % 4.1 %; Neutrophils # 4.55 10^3/uL (1.8-7.7); Neutrophils % 71.7 %; Nucleated Red Blood Cells % 0 %; Platelet Count 161 10^3/cmm (157-399); Red Blood Count 5.42 10^6/uL (3.85-5.65); Red Cell Distribution Width 15.5 % (12.1-15.1); White Blood Count 6.35 10^3/uL (3.29-11.43)
[2023-11-25 23:23] LABS: Alanine Aminotransferase 15 U/L (0-33); Albumin Level 4.3 g/dL (3.5-5.2); Alkaline Phosphatase 99 U/L (35-105); Anion Gap 17.8 (5-19); Aspartate Amino Transferase 16 U/L (0-32); Blood Urea Nitrogen 7 mg/dL (6-20); C Reactive Protein 218.4 mg/L (0.0-4.9); Calcium 9.1 mg/dL (8.5-10.5); Carbon Dioxide 22 mmol/L (22-29); Chloride 101 mmol/L (98-107); Creatinine Clr Calc Pharmacy 176.9815; Globulin 3.3 g/dL (1.3-4.6); Glomerular Filtration Rate 103.7 mL/min (90-130); Glucose 95 mg/dL (65-115); Osmolality Calculated 282 mOsm/kg (285-295); Potassium 3.8 mmol/L (3.5-5.1); Sodium 137 mmol/L (136-145); Total Bilirubin 0.4 mg/dL (0.15-1.2); Total Protein 7.6 g/dL (6.6-8.7)
[2023-11-25 23:24] LABS: Lactic Sepsis W/Reflex 0.6 mmol/L (0.5-2.2)
[2023-11-25 23:32] LABS: HCG, Serum Qual Negative (Negative)
[2023-11-26 00:33] VITALS: BP 110/68; PULSE 102; RESP 16; O2SAT 99
[2023-11-26] MEDS: HYDROcodone-acetaminophen 5-325 mg Tablet 1 TAB PO (01:00)
[2023-11-26 02:44] VITALS: BP 112/78; PULSE 83; RESP 16; O2SAT 96
--- NOTE | 2023-11-26 02:50 | DCPLANNER ---
At 0236, contacted Fareed at [facility] regarding patient transfer. He requested that we fly the patient instead of sending her by ground. Called [facility] at 0239 and spoke to Mark. [facility] was able to accept the flight with a 13 minute ETA.
[2023-11-26 03:17] VITALS: BP 112/78; PULSE 82; O2SAT 97
[2023-11-26 04:11] VITALS: BP 115/75; PULSE 89; RESP 14; TEMP 37.4; O2SAT 99
--- NOTE | 2023-11-26 04:20 | PC.NURSE ---
pt returned to er by [facility] due to fog. [facility] contacted and arrived at 0420 to transport pt
== END 2023-11-26 04:24 | disposition short-term general hospital (02) ==
PROVIDERS: Emergency Provider Nurse Practitioner Family; PCP Nurse Practitioner
DX: M00.9 Pyogenic arthritis, unspecified (principal)
CPT/HCPCS: 36415; 73201; 80053; 83605; 84703; 85025; 85651; 86140; 87040; 96374; 96375; 99285; J1200; J1885; J2765; J7030; Q9967

== ENCOUNTER 2023-12-08 15:00 | Oncology outpatient (recurring) (ONCR) | payer OTHER, SELFPAY ==
[2023-12-01 14:49] VITALS: BP 115/79; PULSE 57; RESP 16; TEMP 36.4; O2SAT 98
[2023-12-01] MEDS: rabies vaccine 2.5 unit SDV IM (15:08)
[2023-12-08 15:10] VITALS: BP 113/75; PULSE 77; RESP 16; TEMP 36.6; O2SAT 98
[2023-12-08] MEDS: rabies vaccine 2.5 unit SDV IM (15:18)
== END 2023-12-23 23:59 | disposition home or self-care (01) ==
PROVIDERS: PCP Nurse Practitioner; Visit Provider Chiropractor
DX: Z20.3 Contact with and (suspected) exposure to rabies (principal); Z23 Encounter for immunization; S61.250A Open bite of right index finger without damage to nail, initial encounter; W55.01XA Bitten by cat, initial encounter; Z53.9 Procedure and treatment not carried out, unspecified reason
CPT/HCPCS: 90471; 90675

== ENCOUNTER → 2024-03-31 13:58 | Outpatient (BNVA) | payer OTHER, SELFPAY | PROVIDERS: PCP Family Medicine; Visit Provider Family Medicine | DX: A74.9 Chlamydial infection, unspecified (principal) | CPT/HCPCS: 87491; 87591 ==

== ENCOUNTER → 2024-05-02 16:01 | Outpatient (BNVA) | payer OTHER, SELFPAY | PROVIDERS: PCP Family Medicine; Visit Provider Family Medicine | DX: F32.2 Major depressive disorder, single episode, severe without psychotic features (principal); E61.1 Iron deficiency | CPT/HCPCS: 80053; 82306; 82728; 83550; 84439; 84443; 85025 ==

== ENCOUNTER → 2024-05-27 17:23 | Outpatient (BNVA) | payer OTHER, SELFPAY | PROVIDERS: PCP Family Medicine; Visit Provider Nurse Practitioner Family | DX: N89.8 Other specified noninflammatory disorders of vagina (principal) | CPT/HCPCS: 81000 ==

== ENCOUNTER 2024-08-23 06:39 | Outpatient (CLI) | payer OTHER, SELFPAY ==
--- NOTE | 2024-08-23 06:45 | US_ITS ---
WS: [id number] Limited abdomen ultrasound. HISTORY: hernia COMPARISON: None available. Ultrasound is performed along the LEFT lower abdomen at the site of possible hernia. There is a large segment of bowel which appears beyond the abdominal wall musculature. There is no evidence for incarceration or strangulation. US/US abdomen limited [id number] IMPRESSION: Highly suspicious for a LEFT lower abdominal wall hernia. Recommend confirmatio n by CT.
--- NOTE | 2024-08-23 07:15 | US_ITS ---
WS: [id number] ULTRASOUND SOFT TISSUES lower LEFT back. HISTORY: lipoma COMPARISON: None available. TECHNIQUE: 2-D and color Doppler imaging is submitted. Palpable area along the LEFT lower back. Ultrasound is directed over the LEFT lower back. No abnormalities identified by ultrasound. US/US soft tissue/extremity [id number] IMPRESSION: Negative ultrasound LEFT lower back.
== END 2024-08-23 06:40 | disposition home or self-care (01) ==
PROVIDERS: PCP Family Medicine; Visit Provider Family Medicine
DX: K43.9 Ventral hernia without obstruction or gangrene (principal); D17.1 Benign lipomatous neoplasm of skin and subcutaneous tissue of trunk; R93.5 Abnormal findings on diagnostic imaging of other abdominal regions, including retroperitoneum
CPT/HCPCS: 76705; 76882

== ENCOUNTER 2024-09-04 11:05 | Emergency (ER) | payer OTHER, SELFPAY ==
--- NOTE | 2024-09-04 11:07 | XRR_ITS ---
PROCEDURE INFORMATION: Exam: XR Chest Exam date and time: 09/04/2024 11:16 AM Age: 24 years old Clinical indication: Pain; Chest pressure; Additional info: Cp TECHNIQUE: Imaging protocol: Radiologic exam of the chest. Views: 1 view. COMPARISON: CT abdomen pelvis con [id number] 01/09/2020 10:27 AM FINDINGS: Lungs: Unremarkable. No consolidation. Pleural spaces: Unremarkable. No pleural effusion. No pneumothorax. Heart/Mediastinum: Unremarkable. No cardiomegaly. Bones/joints: Unremarkable. XR/XR chest 1V portable [id number] IMPRESSION: No acute findings.
--- NOTE | 2024-09-04 11:10 | ECG_ITS ---
[employer] Test Date: 2024-09-04 Pat Name: Sarah Prince Department: Room: Gender: Female Night Time Nanny: : 2000 Requested By: Allison Gomez Order Number: [id number] Sydnie MD: Teddy Aquino M.D. 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 [email or web address]
[2024-09-04 11:15] VITALS: BP 126/76; PULSE 76; RESP 16; TEMP 36.1; O2SAT 99; BMI 33.9
--- NOTE | 2024-09-04 11:20 | W.ED.CHESTPA ---
HPI - Chest Pain General: Chief Complaint: Chest Pain Stated Complaint: cp Time Seen by Provider: 09/04/24 11:07 Source: patient Mode of arrival: ambulatory Limitations: no limitations History of Present Illness: 24 old female states been having some chest pain since last night states it is in the middle of her chest epigastric and below both of her breasts. States it has been a sharp pain said some mild dyspnea patient denies any fever denies any vomiting or diarrhea. Denies any worse improved factors. Associated symptoms: Reports dyspnea; Deny abdominal pain, fever(s), nausea or vomiting Related Data Home Medications ?Medication ?Instructions ?Recorded ?Confirmed ferrous gluconate 324 mg (38 mg 324 mg PO DAILY 09/01/24 09/04/24 iron) tablet Previous Rx's ?Medication ?Instructions ?Recorded sertraline 50 mg tablet 50 mg PO DAILY #90 tabs 06/28/24 Allergies Allergy/AdvReac Type Severity Reaction Status Date / Time Sulfa (Sulfonamide Allergy Unknown ALGY-Hives Verified 09/01/24 07:54 Antibiotics) insect venom Allergy ADR-Swelling Verified 09/01/24 07:54 of the Eye Review of Systems Const: Denies: fever(s), chills, body aches or change in appetite ENMT: Denies: throat pain or dental pain Card: Reports: chest pain Resp: Reports: dyspnea GI: Denies: abdominal pain, nausea, vomiting or diarrhea : Denies: dysuria Musc: Denies: neck pain or back pain Skin/Breast: Denies: rash Neuro: Denies: headache(s) [facility] PFSH: Medical History Obesity (BMI 30.0-34.9) Moderately severe major depression Rectal Hemorrhage Chronic constipation Surgical History Hx of hand surgery 01/15 x 2 2/2 septic joint due to cat bite History of July 31, 2022 Family History Grandmother Diabetes Family/Other Hypertension CAD (coronary artery disease) Other Cancer Denies family history of Anesthesia complication Bleeding disorder Social History Smoking and tobacco/nicotine status: never used tobacco/nicotine Second hand smoke exposure: No Alcohol intake: never Substance/Drug Use: never Adopted: No Caregiver/support person: No Lives independently: No Household members: family Housing: House Marital status: Single Number of children: 0 Highest education level completed: High School Graduate service: No Current occupational status: student Current occupation: [employer] Current occupational exposures/hazards: No Do you think of yourself as: Straight/Heterosexual Current gender identity: Female Female Reproductive History: Para: 1 Physical Exam Const: COMMON NORMALS: no acute distress, patient oriented x3 and healthy appearing HENMT: COMMON NORMALS: normocephalic and atraumatic HEAD & SCALP: normocephalic and atraumatic Eye: COMMON NORMALS: conjunctivae normal CONJUNCTIVA: Yes conjunctivae normal Neck/C-Spine: COMMON NORMALS: full ROM and supple Chest: COMMONS NORMALS: normal inspection of the chest and normal palpation of entire chest wall Resp: COMMON NORMALS: normal respiratory effort, No retractions, No use of accessory muscles and clear to auscultation bilaterally AUSCULTATION: clear to auscultation bilaterally Cardio: COMMON NORMALS: regular rate, regular rhythm and No murmurs present (Cardio) RATE: regular rate RHYTHM: regular rhythm GI: COMMON NORMALS: Normal to inspection, nondistended, normoactive bowel sounds present, Soft to palpation, non-tender and no masses PALPATION: Yes Soft to palpation Extremity: COMMON NORMALS: normal to inspection and full ROM Neuro: COMMON NORMALS: patient oriented x3, moves all extremities and no focal motor deficits Psych: COMMON NORMALS: mental status grossly normal, Normal thought process present and cooperative THOUGHT PROCESS: Normal thought process present Skin: COMMON NORMALS: no rashes or lesions noted and no wounds GENERAL SKIN EXAM: no rashes or lesions noted Course Vital Signs: Vital signs: Vital Signs Temperature 97.0 F L 09/04/24 11:15 Pulse Rate 62 09/04/24 12:53 Respiratory Rate 16 09/04/24 11:15 Blood Pressure 125/73 09/04/24 12:53 Pulse Oximetry 99 09/04/24 12:53 Oxygen Delivery Me thod Room Air 09/04/24 11:15 MDM - Chest Pain Medical Decision Making Patient presents here with chest pain is atypical in nature she been well-appearing here abdominal exam is benign blood work here is normal she is stable for discharge follow-up with PCP return if worsening. Medical Records I reviewed the patient's medical records. Lab Data I reviewed the patient's lab results. 09/04/24 11:24 09/04/24 11:24 Radiology Impressions Chest X-Ray 09/04/24 11:07 IMPRESSION: No acute findings. Laboratory Results WBC 5.95 10^3/uL (3.29-11.43) 09/04/24 11:24 RBC 4.30 10^6/uL (3.85-5.65) 09/04/24 11:24 Hgb 11.50 g/dL (11.27-16.99) 09/04/24 11:24 Hct 36.0 % (36-47) 09/04/24 11:24 MCV 83.7 fl (85-98) L 09/04/24 11:24 MCH 26.7 pg (27-33) L 09/04/24 11:24 MCHC 31.9 g/dL (30-55) 09/04/24 11:24 RDW 13.0 % (12.1-15.1) 09/04/24 11:24 Plt Count 261 10^3/cmm (157-399) 09/04/24 11:24 MPV 10.0 fL (7.4-10.4) 09/04/24 11:24 Neut % (Auto) 55.3 % 09/04/24 11:24 Lymph % (Auto) 36.1 % 09/04/24 11:24 Sierra % (Auto) 5.2 % 09/04/24 11:24 Eos % (Auto) 1.8 % 09/04/24 11:24 Baso % (Auto) 0.8 % 09/04/24 11:24 Neut # (Auto) 3.28 10^3/uL (1.8-7.7) 09/04/24 11:24 Lymph # (Auto) 2.2 10^3/uL (0.8-4.8) 09/04/24 11:24 Sierra # (Auto) 0.3 10^3/uL (0.2-0.9) 09/04/24 11:24 Eos # (Auto) 0.1 10^3/uL (0.0-0.8) 09/04/24 11:24 Baso # (Auto) 0.1 10^3/uL (0.0-0.1) 09/04/24 11:24 Nucleated RBC % (auto) 0 % 09/04/24 11:24 Nucleated RBCs # 0.0 /100WBC 09/04/24 11:24 D-Dimer 0.31 ug/mLFEU (0-0.59) 09/04/24 11:24 Sodium 139 mmol/L (136-145) 09/04/24 11:24 Potassium 3.8 mmol/L (3.5-5.1) 09/04/24 11:24 Chloride 103 mmol/L (98-107) 09/04/24 11:24 Carbon Dioxide 25 mmol/L (22-29) 09/04/24 11:24 Anion Gap 14.8 (5-19) 09/04/24 11:24 BUN 10 mg/dL (6-20) 09/04/24 11:24 Creatinine 0.7 mg/dL (0.5-0.9) 09/04/24 11:24 GFR Calculation 102.8 mL/min (90-130) 09/04/24 11:24 Glucose 78 mg/dL (65-115) 09/04/24 11:24 Calculated Osmolality 286 mOsm/kg (285-295) 09/04/24 11:24 Calcium 9.2 mg/dL (8.5-10.5) 09/04/24 11:24 Total Bilirubin 0.2 mg/dL (0.15-1.2) 09/04/24 11:24 AST 15 U/L (0-32) 09/04/24 11:24 ALT 22 U/L (0-33) 09/04/24 11:24 Alkaline Phosphatase 103 U/L (35-105) 09/04/24 11:24 Troponin T Baseline < 6 ng/L (0-10) 09/04/24 11:24 Total Protein 6.8 g/dL (6.6-8.7) 09/04/24 11:24 Albumin 4.6 g/dL (3.5-5.2) 09/04/24 11:24 Globulin 2.2 g/dL (1.3-4.6) 09/04/24 11:24 Lipase 36 U/L (13-60) 09/04/24 11:24 HCG, Qual Negative (Negative) 09/04/24 11:24 No radiology studies performed this visit EKG Data EKG 1: I personally reviewed and interpreted this EKG as follows: EKG interpretation date: 09/04/24 EKG interpretation time: 11:10 Interpretation: nsr hr [address] elevation qrs 114 qtc 447 Discharge Plan Discharge Patient Disposition: Home Clinical Impression: Atypical chest pain Condition: Stable Prescriptions: No Action sertraline 50 mg tablet 50 mg PO DAILY Qty: 90 1RF ferrous gluconate 324 mg (38 mg iron) tablet 324 mg PO DAILY Discharge Orders: Discharge ED (Routine); Ordered 09/04/24 Ordered By: Allison Gomez Referrals: Hunter Whitlock MD [Primary Care Provider] - 4-7 days Discharge Diet: Advance as tolerated Discharge Activity: Resume usual activity Patient Instructions: Chest Pain (ED) Print Language: Nepali Coding Level of Care Code ED [employer] Worker for Jenniffer Hannah
[2024-09-04] MEDS: lidocaine 2% viscous 15 ML, aluminum-mag hydrox-simethicon 30 ML, sucralfate oral liq 1 GM PO (11:31)
[2024-09-04 11:43] VITALS: BP 116/74; PULSE 65; O2SAT 99
[2024-09-04 11:44] LABS: D Dimer 0.31 ug/mLFEU (0-0.59)
[2024-09-04 11:50] LABS: Alanine Aminotransferase 22 U/L (0-33); Albumin Level 4.6 g/dL (3.5-5.2); Alkaline Phosphatase 103 U/L (35-105); Anion Gap 14.8 (5-19); Aspartate Amino Transferase 15 U/L (0-32); Blood Urea Nitrogen 10 mg/dL (6-20); Calcium 9.2 mg/dL (8.5-10.5); Carbon Dioxide 25 mmol/L (22-29); Chloride 103 mmol/L (98-107); Creatinine Clr Calc Pharmacy 174.5439; Globulin 2.2 g/dL (1.3-4.6); Glomerular Filtration Rate 102.8 mL/min (90-130); Glucose 78 mg/dL (65-115); Lipase 36 U/L (13-60); Osmolality Calculated 286 mOsm/kg (285-295); Potassium 3.8 mmol/L (3.5-5.1); Sodium 139 mmol/L (136-145); Total Bilirubin 0.2 mg/dL (0.15-1.2); Total Protein 6.8 g/dL (6.6-8.7)
[2024-09-04 11:51] LABS: Troponin(5th) Baseline < 6 ng/L (0-10)
[2024-09-04 11:59] LABS: HCG, Serum Qual Negative (Negative)
[2024-09-04 12:41] LABS: Basophils # 0.1 10^3/uL (0.0-0.1); Basophils % 0.8 %; Eosinophils # 0.1 10^3/uL (0.0-0.8); Eosinophils % 1.8 %; Lymphocytes # 2.2 10^3/uL (0.8-4.8); Lymphocytes % 36.1 %; Mean Corpuscular HGB Conc 31.9 g/dL (30-55); Mean Corpuscular Hemoglobin 26.7 pg (27-33); Mean Corpuscular Volume 83.7 fl (85-98); Monocytes # 0.3 10^3/uL (0.2-0.9); Monocytes % 5.2 %; Neutrophils # 3.28 10^3/uL (1.8-7.7); Neutrophils % 55.3 %; Nucleated Red Blood Cells % 0 %; Platelet Count 261 10^3/cmm (157-399); White Blood Count 5.95 10^3/uL (3.29-11.43)
[2024-09-04 12:52] VITALS: BP 125/73; PULSE 66; O2SAT 100
[2024-09-04 12:53] VITALS: BP 125/73; PULSE 62; O2SAT 99
== END 2024-09-04 13:02 | disposition home or self-care (01) ==
PROVIDERS: Emergency Provider Emergency Medicine; PCP Family Medicine
DX: R07.89 Other chest pain (principal)
CPT/HCPCS: 36415; 71045; 80053; 83690; 84484; 84703; 85025; 85378; 93005; 99285; J9999

== ENCOUNTER 2024-09-12 12:23 | Outpatient (CLI) | payer OTHER, SELFPAY ==
--- NOTE | 2024-09-12 12:30 | CT_ITS ---
WS: [id number] CT ABDOMEN AND PELVIS NONCONTRAST HISTORY: ventral hernia TECHNIQUE: Imaging performed through the abdomen and pelvis. Coronal and sagittal reformats are submitted. All CT scans at [facility] use at least one of these dose optimization techniques: automated exposure control; mA and/or kV adjustment per patient size (includes targeted exams where dose is matched to clinical indication); or iterative reconstruction. DLP: 949.34 mGy.cm COMPARISON: 01/09/2020 Lower thorax: Lung bases are clear. Visualized heart is normal. No hiatal hernia. Liver: Normal size liver. No mass or bile duct dilatation. Gallbladder: Normal gallbladder. No pericholecystic fluid or cholelithiasis. No gallbladder wall thickening. Pancreas: Normal size and attenuation. Normal pancreatic duct. No pancreatitis or mass. Spleen: Normal. Adrenal glands: Normal. No mass. Right kidney: Normal size kidney with no mass or hydronephrosis. Left kidney: Normal size kidney with no mass or hydronephrosis. Aorta: Normal abdominal aorta, no aneurysm or atherosclerosis. No free fluid, intraperitoneal air or significant lymphadenopathy. GI tract: Mild distended stomach with food products. No small bowel obstruction. No enteritis. Normal appendix. Reidentified is a short segment area of wall thickening previously described at the rectosigmoid junction which is unchanged since 2019. Abdominal wall: Negative. No hernia. No mass is identified along the posterior LEFT pelvis at the area of the palpable abnormality. There is a marker placed. Normal appearance of the soft tissues. Pelvis: IUD present within the uterus. Osseous structures: Unremarkable. CT/CT abdomen pelvis wo con [id number] IMPRESSION: 1. No mass or abnormality associated with the palpable region over the posteri or LEFT pelvis. 2. Normal appendix. 3. No renal obstruction. 4. Reidentified is a short segment area of colonic wall thickening at the rect osigmoid junction which is unchanged since 2019.
== END 2024-09-12 12:24 | disposition home or self-care (01) ==
LOC: RAD 12:25
PROVIDERS: PCP Family Medicine; Visit Provider Family Medicine
DX: K43.9 Ventral hernia without obstruction or gangrene (principal); K63.89 Other specified diseases of intestine; Z97.5 Presence of (intrauterine) contraceptive device
CPT/HCPCS: 74176

== ENCOUNTER → 2025-02-17 10:07 | Outpatient (BNVA) | payer OTHER, SELFPAY | PROVIDERS: PCP Family Medicine; Visit Provider Clinical Nurse Specialist Adult Health | DX: J06.9 Acute upper respiratory infection, unspecified (principal) | CPT/HCPCS: 87880 ==

== ENCOUNTER → 2025-03-06 17:04 | Outpatient (BNVA) | payer OTHER, SELFPAY | PROVIDERS: PCP Family Medicine; Visit Provider Obstetrics & Gynecology | DX: N93.9 Abnormal uterine and vaginal bleeding, unspecified (principal); N92.1 Excessive and frequent menstruation with irregular cycle; Z97.5 Presence of (intrauterine) contraceptive device | CPT/HCPCS: 81025; 87491; 87591; 87661 ==

== ENCOUNTER 2025-03-16 12:28 | Outpatient (CLI) | payer OTHER, SELFPAY ==
--- NOTE | 2025-03-16 12:30 | US_ITS ---
WS: [id number] US transvaginal [id number] HISTORY: N93.9 - Abnormal uterine and vaginal bleeding, unspecified COMPARISON: CT 09/12/2024 Uterus: 8.5 cm x 4.1 cm x 3.7 cm. Normal size anteverted uterus. No fibroid or mass. Endometrium: 0.8 cm. IUD is noted along the endocervical canal. From the tip of the endometrium to the parametrium there is a distance of less than 2 cm. The IUD does extend to the endocervical junction. There is still appropriate position of the IUD with comparison to the fundus of the uterus. When compared to the CT from 09/12/2024 the IUD does appear to have dropped slightly. Right ovary: 2.4 cm x 1.9 cm x 2.1 cm. Normal size and vascularity, no cystic or solid masses. Left ovary: Not identified. No free fluid in the cul-de-sac. US/US transvaginal [id number] IMPRESSION: 1. IUD remains in good position. 2. As compared to the prior CT from 09/12/2024 the IUD does appear to have slig htly migrated inferiorly but still remains in satisfactory position.
== END 2025-03-16 12:29 | disposition home or self-care (01) ==
LOC: RAD 12:29
PROVIDERS: PCP Family Medicine; Visit Provider Obstetrics & Gynecology
DX: N93.9 Abnormal uterine and vaginal bleeding, unspecified (principal); Z30.430 Encounter for insertion of intrauterine contraceptive device
CPT/HCPCS: 76830

== ENCOUNTER → 2025-04-18 13:11 | Outpatient (BNVA) | payer OTHER, SELFPAY | PROVIDERS: PCP Family Medicine | DX: R58 Hemorrhage, not elsewhere classified (principal); R39.89 Other symptoms and signs involving the genitourinary system; R53.83 Other fatigue | CPT/HCPCS: 81000; 85018; 87086 ==